=== PATIENT | female | born 2000 | race Caucasian/White ===

== ENCOUNTER 2022-11-09 20:32 | Emergency (ER) | payer OTHER ==
[~2022-11-09] VITALS: Ht 157.5 cm; Wt 70.8 kg
[2022-11-09] MEDS ORDERED: PRENATAL + DHA1 EAC1 (20:46)
== END 2022-11-09 22:52 | disposition home or self-care (01) ==
LOC: ER 20:32
DX: K29.70 Gastritis, unspecified, without bleeding (principal)

== ENCOUNTER 2023-02-12 13:37 | Emergency (ER) | payer OTHER ==
[~2023-02-12] VITALS: Ht 154.9 cm; Wt 68.9 kg
[~2023-02-12 13:37] MED LIST: PRENATAL + DHA1 EAC1
== END 2023-02-12 19:34 | disposition home or self-care (01) ==
LOC: ER 13:37
DX: O23.32 Infections of other parts of urinary tract in pregnancy, second trimester (principal); N39.0 Urinary tract infection, site not specified; Z20.822 Contact with and (suspected) exposure to COVID-19; Z3A.24 24 weeks gestation of pregnancy

== ENCOUNTER 2023-02-15 12:51 | Emergency (ER) | payer OTHER ==
[~2023-02-15] VITALS: Ht 154.9 cm; Wt 68.9 kg
== END 2023-02-15 17:33 | disposition home or self-care (01) ==
LOC: ER 12:51
DX: O99.013 Anemia complicating pregnancy, third trimester (principal); Z3A.34 34 weeks gestation of pregnancy; R05.9 Cough, unspecified; E16.2 Hypoglycemia, unspecified; Z20.822 Contact with and (suspected) exposure to COVID-19

== ENCOUNTER 2023-03-08 12:48 | Outpatient (CLI) | payer OTHER | END 2023-03-09 17:00 | disposition home or self-care (01) | LOC: OBS/DEL 12:48 → LDR 12:51 → OBS/DEL 03-09 17:00 | PROVIDERS: ATTEND Specialist | DX: O23.32 Infections of other parts of urinary tract in pregnancy, second trimester (principal); N39.0 Urinary tract infection, site not specified; Z3A.27 27 weeks gestation of pregnancy ==

== ENCOUNTER 2023-04-24 14:41 | Outpatient (CLI) | payer OTHER | END 2023-04-24 16:07 | disposition home or self-care (01) | LOC: OBS/DEL 14:41 | PROVIDERS: ATTEND Specialist | DX: O26.893 Other specified pregnancy related conditions, third trimester (principal); Z3A.34 34 weeks gestation of pregnancy ==